=== PATIENT | male | born 1990 | race Caucasian/White ===

== ENCOUNTER 2017-12-05 14:39 | Outpatient (REF) | payer OTHER, SELFPAY ==
[2017-12-05 21:03] LABS: Abs Immature Grans 0.01 k/cumm (0.0-0.09); Absolute Basophil Count 0.02 k/cumm (0.0-0.2); Absolute Eosinophil Count 0.06 k/cumm (0.0-0.7); Absolute Monocyte Count 0.59 k/cumm (0.11-0.7); Absolute Neutrophil Count 2.24 k/cumm (1.2-6.7); Basophils % 0.4; Eosinophils % 1.2; HCT 39.5 % (40.0-50.0); HGB 13.4 g/dL (13.5-17.5); Immature Grans % 0.2; Lymphocytes % 40.7; Mean Corp. HGB Concentration 33.9 g/dL (32.0-36.0); Mean Corpuscular Hemoglobin 28.6 pg (27.0-33.0); Mean Corpuscular Volume 84.2 fL (80-95); Mean Platelet Volume 9.6 fL (8.0-11.0); Neutrophils % 45.5; Platelet Count 216 x1000/uL (130-400); RBC 4.69 m/cumm (4.50-6.00); RBC Distribution Width 12.8 % (11.8-14.1); White Blood Cell Count 4.92 k/cumm (4.4-10.8)
[2017-12-05 21:24] LABS: Iron 92 ug/dL (50-175); Total Iron Binding Capacity 273 ug/dL (250-450); Transferrin Sat 34 % (20-55)
[2017-12-05 21:38] LABS: Ferritin 231 ng/mL (8-388); TSH (W/Ref FT4) 0.56 uIU/mL (0.358-3.74)
== END 2017-12-05 14:40 ==
LOC: NCHCN 14:39
PROVIDERS: PCP Nurse Practitioner; Visit Provider Nurse Practitioner
DX: N05.9 Unspecified nephritic syndrome with unspecified morphologic changes (principal)
CPT/HCPCS: 82728; 83540; 83550; 84443; 85025

== ENCOUNTER 2017-12-14 13:05 | Outpatient (REF) | payer OTHER, SELFPAY ==
[2017-12-14 20:27] LABS: Abs Immature Grans 0.01 k/cumm (0.0-0.09); Absolute Basophil Count 0.02 k/cumm (0.0-0.2); Absolute Eosinophil Count 0.07 k/cumm (0.0-0.7); Absolute Lymphocyte Count 1.73 k/cumm (1.2-3.4); Absolute Monocyte Count 0.39 k/cumm (0.11-0.7); Absolute Neutrophil Count 2.09 k/cumm (1.2-6.7); Basophils % 0.5; Eosinophils % 1.6; HCT 39.4 % (40.0-50.0); HGB 13.4 g/dL (13.5-17.5); Immature Grans % 0.2; Lymphocytes % 40.1; Mean Corpuscular Hemoglobin 28.6 pg (27.0-33.0); Mean Corpuscular Volume 84.2 fL (80-95); Mean Platelet Volume 9.9 fL (8.0-11.0); Neutrophils % 48.6; Platelet Count 180 x1000/uL (130-400); RBC 4.68 m/cumm (4.50-6.00); RBC Distribution Width 13.1 % (11.8-14.1); White Blood Cell Count 4.31 k/cumm (4.4-10.8)
[2017-12-14 21:02] LABS: Anion Gap 11.4 mmol/L (3-11); BUN 12 mg/dL (7-18); CO2 26.6 mmol/L (21.0-32.0); CREATININE 1.12 mg/dL (0.70-1.30); Chloride 104 mmol/L (98-107); Glucose 104 mg/dL (70-100); Potassium 3.8 mmol/L (3.5-5.1); Sodium 142 mmol/L (136-145)
== END 2017-12-14 13:06 ==
LOC: NCHCN 13:05
PROVIDERS: PCP Nurse Practitioner; Visit Provider Nurse Practitioner
DX: N05.9 Unspecified nephritic syndrome with unspecified morphologic changes (principal); R53.83 Other fatigue
CPT/HCPCS: 80048; 85025

== ENCOUNTER 2018-05-28 14:13 | Outpatient (REF) | payer OTHER, SELFPAY ==
[2018-05-28 21:56] LABS: Anion Gap 9.6 mmol/L (3-11); BUN 18 mg/dL (7-18); CO2 28.4 mmol/L (21.0-32.0); CREATININE 1.22 mg/dL (0.70-1.30); Calcium 8.7 mg/dL (8.5-10.1); Chloride 103 mmol/L (98-107); Glucose 93 mg/dL (70-100); Potassium 3.8 mmol/L (3.5-5.1); Sodium 141 mmol/L (136-145)
== END 2018-05-28 14:33 ==
LOC: NCHCN 14:13
PROVIDERS: PCP Nurse Practitioner; Visit Provider Nurse Practitioner
DX: R53.83 Other fatigue (principal); Z00.00 Encounter for general adult medical examination without abnormal findings
CPT/HCPCS: 80048

== ENCOUNTER 2018-05-30 21:43 | Outpatient (REF) | payer OTHER, SELFPAY ==
[2018-05-30 22:09] LABS: Abs Immature Grans 0.01 k/cumm (0.0-0.09); Absolute Basophil Count 0.02 k/cumm (0.0-0.2); Absolute Eosinophil Count 0.08 k/cumm (0.0-0.7); Absolute Lymphocyte Count 2.01 k/cumm (1.2-3.4); Absolute Neutrophil Count 3.06 k/cumm (1.2-6.7); Basophils % 0.3; Eosinophils % 1.4; HCT 43.6 % (40.0-50.0); Immature Grans % 0.2; Lymphocytes % 34.2; Mean Corp. HGB Concentration 34.4 g/dL (32.0-36.0); Mean Corpuscular Hemoglobin 28.6 pg (27.0-33.0); Mean Platelet Volume 9.5 fL (8.0-11.0); Monocytes % 11.9; Platelet Count 207 x1000/uL (130-400); RBC 5.25 m/cumm (4.50-6.00); RBC Distribution Width 13.1 % (11.8-14.1); White Blood Cell Count 5.88 k/cumm (4.4-10.8)
[2018-05-30 22:46] LABS: Hemoglobin A1C 5.6 % (4.5-6.2)
[2018-05-30 22:50] LABS: ESR 5 MM/HR (0-15)
[2018-05-30 22:59] LABS: ALT 19 U/L (12-78); AST 17 U/L (15-37); Albumin 4.1 g/dL (3.4-5.0); Alkaline Phosphatase 67 U/L (46-116); Anion Gap 8.2 mmol/L (3-11); BUN 22 mg/dL (7-18); Bilirubin, Total 0.5 mg/dL (0.2-1.0); C-Reactive Protein 0.26 mg/dL (0.0-0.3); CO2 27.8 mmol/L (21.0-32.0); CREATININE 1.28 mg/dL (0.70-1.30); Calcium 9.2 mg/dL (8.5-10.1); Chloride 103 mmol/L (98-107); Ferritin 134 ng/mL (8-388); Glucose 98 mg/dL (70-100); Potassium 3.8 mmol/L (3.5-5.1); Sodium 139 mmol/L (136-145); Total Protein 7.1 g/dL (6.4-8.2)
== END 2018-05-30 22:03 ==
LOC: NCHCN 21:43
PROVIDERS: PCP Nurse Practitioner; Visit Provider Nurse Practitioner
DX: R53.83 Other fatigue (principal); R35.8 Other polyuria
CPT/HCPCS: 80053; 85652; 82728; 83036; 85025; 86140

== ENCOUNTER 2018-06-04 01:17 | Outpatient (CLI) | payer OTHER, SELFPAY ==
--- NOTE | 2018-06-04 10:22 | DI.CT_ITS ---
SYMPTOM/DIAGNOSIS: CHRONIC SINUSITIS, J32.[address]: The sinuses appear clear throughout. There is no evidence of fracture or bony destruction. The orbits are unremarkable. The nasal cavity appears clear. IMPRESSION: Negative sinus CT.
== END 2018-06-04 01:37 ==
PROVIDERS: PCP Nurse Practitioner; Visit Provider Nurse Practitioner
DX: J32.9 Chronic sinusitis, unspecified (principal)
CPT/HCPCS: 70486